=== PATIENT | female | born 1970 | race African-American/Black ===

== ENCOUNTER → 2016-12-15 | Day surgery (SDC) | payer OTHER ==
--- NOTE | 2016-12-06 11:22 | History & Physical Pre-Op ---
General Information and HPI History of Present Illness: Leslee is a 46-year-old female with a long-standing and worsening complaints of right heel pain. The patient has undergone an extended course of conservative care, including shoe gear and activity modification, rest, immobilization course of NSAIDs. None of this is yielded her any significant relief. The patient presents today for preoperative surgical consultation. Allergies/Medications Allergies: Coded Allergies: No Known Allergies (12/04/16) Home Med list Budesonide/Formoterol Fumarate (Symbicort 160-4.5 Mcg Inhaler) 160 MCG-4.5 MCG/ ACTUATION HFA.AER.AD ASTHMA (Reported) Cyclobenzaprine HCl 10 MG TABLET SPASM (Reported) Insulin Glargine,Hum.rec.anlog (Lantus Solostar) 100 UNIT/ML (3 ML) INSULN.PEN 28 UNITS SC NIGHTLY DM II (Reported) Insulin Regular (Novolin R Inj) 1,000 UNITS/10 ML OSCAR DM II (Reported) SLIDING SCALE Lisinopril 20 MG TABLET BP (Reported) Metformin HCl 500 MG TABLET DM II (Reported) Montelukast Sodium (Singulair) 10 MG TABLET ASTHMA (Reported) Nitrofurantoin (Macrodantin) 50 MG CAPSULE 1 CAP PO DAILY RECURRENT UTI ( Reported) Pantoprazole Sodium (Protonix) 40 MG TABLET.DR MARTINEZ (Reported) Rosuvastatin Calcium (Crestor) 40 MG TABLET CHOLESTEROL (Reported) Past History Medical History Endocrine: diabetes Surgical History Pertinent Surgical History: non-contributory Review of Systems Review of Systems: Unremarkable except for that noted in history of present illness Exam & Diagnostic Data Physical Exam: Lungs clear bilaterally. Heart sounds rate and rhythm regular. Lower extremity physical exam demonstrates intact pedal pulses bilaterally. Pulses dorsalis pedis and posterior tibial arteries are palpable bilaterally. Patient without any sensory or motor deficits. Deep tendon reflexes grossly intact. Significant pain noted with palpation to the plantar medial right heel. Negative Tinel sign noted with percussion of the posterior tibial nerve. Ankle range of motion noted to be diminished, especially in dorsiflexion. Assessment/Plan Assessment/Plan: Gastrocnemius equinus and plantar fasciosis right. A lengthy discussion reviewing both surgical and conservative options was held the patient at bedside and the patient elects to go forward surgery despite the risks. As Ranked By This Provider Problem List: 1. Plantar fascial fibromatosis Attending MD Review Statement Attending Statement Attending MD Statement: examined this patient
[~2016-12-15] VITALS: Ht 180.3 cm; Wt 131.5 kg
[~2016-12-15] MED LIST: CRESTOR40 M2; CYCLOBENZAPRINE10 M1; LANTUS SOL100 UNIT/1 SC; LISINOPRIL20 M1; MACRODANTIN50 M1 PO; METFORMIN HCL500 M3; NOVOLIN R100 UNIT/1; PROTONIX40 M3; SINGULAIR10 M1; SYMBICORT 16010.2 GM
--- NOTE | 2016-12-15 10:16 | Operative Report ---
Operative/Inv Procedure Report Surgery Date: 12/15/16 Name of Procedure: 1 gastrocnemius recession right 2 plantar fasciotomy right 3 plantar fasciectomy right Pre-Operative Diagnosis: 1 gastrocnemius equinus right 2 plantar fasciosis right Post-Operative Diagnosis: The same Estimated Blood Loss: taya Surgeon/Swimming Instructor: JEREMIAH ESPITIA DPM Anesthesia: moderate sedation, block Operative/Procedure Note Note: After obtaining informed consent the patient was brought to the operating room and placed on the operating table in the supine position. The patient was then securely fastened to the operating table utilizing safety belt. After administration of IV sedation, 10 mL of 0.5% Marcaine plain was infiltrated about the patient's right ankle. 2 g of Ancef were delivered intravenously times one dose. A well-padded calf tourniquet was placed about the patient's right upper calf. The right lower extremity was then scrubbed prepped and draped in the usual aseptic manner. 70 was elevated to examine to limb, at which point the calf tourniquet was inflated to 250 mmHg. Attention was directed to the distal right leg, where a linear incision was made 2 fingerbreadths distal to the medial head of the gastrocnemius muscle. He dissection was then carried down to the medial margin of the gastroc fascia. An interval was developed between the fascia and the peritenon. The sural nerve was identified protected. A gastrocnemius recession was then performed. The deep tissues reapproximated 4-0 Vicryl and the skin edges reapproximated 4-0 nylon. It was then directed to the distal foot, where a grid pattern was marked out and the portals were developed with a sterile 60 K wire overlying the proximal extent of the medial slip of the plantar fascia. The tissue was then ablated with the Auto Secure micro-ablator at half millimeter intervals along the marked out pattern. He dissection was then carried down to the medial margin of the fascia which was released from its attachment at the medial tubercle calcaneal tuberosity. The incision was then closed with 4-0 nylon. The incisions were dressed with [place] dressings and Coban. The patient was noted to tolerate both procedure and anesthesia well and the patient was transported from the operating room to recovery with vital signs stable best assess intact all digits right foot.
== END ==
LOC: STS 12-08 07:00
DX: M21.6X1 Other acquired deformities of right foot (principal); M72.2 Plantar fascial fibromatosis; E11.9 Type 2 diabetes mellitus without complications; Z79.4 Long term (current) use of insulin; Z79.84 Long term (current) use of oral hypoglycemic drugs; Z86.718 Personal history of other venous thrombosis and embolism
CPT/HCPCS: 81025; J0690; J2001; J2250